=== PATIENT | female | born 1985 | race Caucasian/White ===

== ENCOUNTER 2016-10-12 12:04 | Outpatient (CLI) | payer OTHER ==
[~2016-10-12] VITALS: Ht 160 cm; Wt 69.5 kg
[~2016-10-12 12:04] MED LIST: ACHD5005 PO; HYDR-3583 PO; IBP600T1 PO; Ibuprofen PO; METR500T PO; PREN-93 PO; PREN1TAB14 PO; PREN1TAB25 PO
[2016-10-12 12:12] VITALS: BP 119/76
== END 2016-10-12 12:30 | disposition home or self-care (01) ==
LOC: PREOP 12:04
PROVIDERS: ATTEND Obstetrics & Gynecology
DX: Z01.818 Encounter for other preprocedural examination (principal); Z11.2 Encounter for screening for other bacterial diseases; O34.219 Maternal care for unspecified type scar from previous cesarean delivery
CPT/HCPCS: 87081

== ENCOUNTER 2016-10-16 06:08 | Inpatient (IN) | payer OTHER ==
[~2016-10-16] VITALS: Ht 160 cm; Wt 68.2 kg
[~2016-10-16 06:08] MED LIST changes: +CITRIC ACID/SOB CIT (BICITRA) 30 ML UDC ONE; +FAMOTIDINE 20MG/2ML IV (PEPCID) ONE; +METOCLOPRAMIDE INJ 10 MG/2 ML (REGLAN) ONE; +NS (IVPB) 50 ML ONE; +ceFAZolin 1,000 MG (ANCEF) VIAL ONE; +metroNIDAZOLE 500MG/100ML IVPB 100 ML ONE
--- OUTSIDE RECORDS SUMMARY | 2016-10-16 06:13 | XMS REPORT | Continuity of Care Document ---
Author Author [facility] Organization [facility] Address Unknown Phone Unavailable Allergies Active Description Code Type Severity Reaction Onset Reported/Identified Relationship to Patient Clinical Status Yes No Known Drug Allergies [id number] Drug Allergy Unknown N/ A 01/26/2011 Medications Problems Date Dx Coded Attending Type Code Diagnosis Diagnosed By 01/26/2011 Ot 616.10 VAGINITIS NOS 01/26/2011 Ot 623.8 NONINFLAM DIS VAGINA NEC 01/26/2011 Ot 646.63 INFECTION-ANTEPARTUM 01/26/2011 Ot 654.73 ABNORM VAGINA-ANTEPARTUM 07/01/2011 Ot 652.21 BREECH PRESENTAT-DELIVER 07/01/2011 Ot V06.1 [id number], COMBINED [ 07/01/2011 Ot V27.0 DELIVER-SINGLE LIVEBORN 01/20/2013 VEGA VAN MD Ot 632 MISSED 02/27/2014 IRA HOLDER, EMEILA Gr Ot 654.21 PREV DELIVRY W/ OR W/O MENT ANT 02/27/2014 IRA HOLDER, EMELIA Gr Ot V06.1 [id number], COMBINED [ 02/27/2014 EMELIA ROTH MD Ot V27.0 DELIVER-SINGLE LIVEBORN 02/25/2016 Ot 649.63 UTERINE SIZE DATE DISCREPANCY, ANTEPARTU 02/25/2016 EMELIA ROTH MD Ot 646.93 PREG COMPL NOS-ANTEPART 02/25/2016 EMELIA ROTH MD Ot 649.63 UTERINE SIZE DATE DISCREPANCY, ANTEPARTU 02/25/2016 EMELIA ROTH MD Ot V28.81 ENCOUNTER FOR ANATOMIC SURVEY 02/25/2016 VEGA VAN MD Ot 285.9 ANEMIA NOS 02/25/2016 VEGA VAN MD Ot 648.23 ANEMIA-ANTEPARTUM 02/25/2016 VEGA VAN MD Ot 654.23 PREV DELIVERY, ANTEPARTUM COND 02/25/2016 VEGA VAN MD Ot V72.63 PRE-PROCEDURAL LABORATORY EXAMINATION 02/25/2016 VEGA VAN MD Ot V74.8 SCREEN-BACTERIAL DIS NEC 02/25/2016 Ot 649.63 UTERINE SIZE DATE DISCREPANCY, ANTEPARTU 02/25/2016 EMELIA ROTH MD Ot 646.93 PREG COMPL NOS-ANTEPART 02/25/2016 EMELIA ROTH MD Ot 649.63 UTERINE SIZE DATE DISCREPANCY, ANTEPARTU 02/25/2016 EMELIA ROTH MD Ot V28.81 ENCOUNTER FOR ANATOMIC SURVEY 02/25/2016 VEGA VAN MD Ot 285.9 ANEMIA NOS 02/25/2016 VEGA VAN MD Ot 648.23 ANEMIA-ANTEPARTUM 02/25/2016 VEGA VAN MD Ot 654.23 PREV DELIVERY, ANTEPARTUM COND 02/25/2016 VEGA VAN MD Ot V72.63 PRE-PROCEDURAL LABORATORY EXAMINATION 02/25/2016 VEGA VAN MD Ot V74.8 SCREEN-BACTERIAL DIS NEC 03/16/2016 Ot 649.63 UTERINE SIZE DATE DISCREPANCY, ANTEPARTU 03/16/2016 EMELIA ROTH MD Ot 646.93 PREG COMPL NOS-ANTEPART 03/16/2016 EMELIA ROTH MD Ot 649.63 UTERINE SIZE DATE DISCREPANCY, ANTEPARTU 03/16/2016 EMELIA ROTH MD Ot V28.81 ENCOUNTER FOR ANATOMIC SURVEY 03/16/2016 VEGA VAN MD Ot 285.9 ANEMIA NOS 03/16/2016 VEGA VAN MD Ot 648.23 ANEMIA-ANTEPARTUM 03/16/2016 VEGA VAN MD Ot 654.23 PREV DELIVERY, ANTEPARTUM COND 03/16/2016 VEGA VAN MD Ot V72.63 PRE-PROCEDURAL LABORATORY EXAMINATION 03/16/2016 VEGA VAN MD Ot V74.8 SCREEN-BACTERIAL DIS NEC 03/18/2016 IRAEMELIA RIVAS MD, Ot Z34.91 ENCNTR FOR SUPRVSN OF NORMAL PREG, UNSP, 03/18/2016 EMELIA ROTH MD, Ot Z3A.08 8 WEEKS GESTATION OF 04/08/2016 EMELIA ROTH MD, Ot Z34.91 ENCNTR FOR SUPRVSN OF NORMAL PREG, UNSP, 04/08/2016 EMELIA ROTH MD, Ot Z3A.08 8 WEEKS GESTATION OF 06/10/2016 Ot 649.63 UTERINE SIZE DATE DISCREPANCY, ANTEPARTU 06/10/2016 EMELIA ROTH MD Ot 646.93 PREG COMPL NOS-ANTEPART 06/10/2016 EMELIA ROTH MD, Ot 649.63 UTERINE SIZE DATE DISCREPANCY, ANTEPARTU 06/10/2016 EMELIA ROTH MD, Ot V28.81 ENCOUNTER FOR ANATOMIC SURVEY 06/10/2016 VEGA VAN MD Ot 285.9 ANEMIA NOS 06/10/2016 VEGA VAN MD Ot 648.23 ANEMIA-ANTEPARTUM 06/10/2016 VEGA VAN MD Ot 654.23 PREV DELIVERY, ANTEPARTUM COND 06/10/2016 VEGA VAN MD Ot V72.63 PRE-PROCEDURAL LABORATORY EXAMINATION 06/10/2016 VEGA VAN MD Ot V74.8 SCREEN-BACTERIAL DIS NEC 06/10/2016 EMELIA ROTH MD, Ot Z34.91 ENCNTR FOR SUPRVSN OF NORMAL PREG, UNSP, 06/10/2016 EMELIA ROTH MD, Ot Z3A.08 8 WEEKS GESTATION OF 06/11/2016 EMELIA ROTH MD, Ot Z36 ENCOUNTER FOR SCREENING OF MOT 06/11/2016 EMELIA ROTH MD, Ot Z3A.20 20 WEEKS GESTATION OF 06/12/2016 EMELIA ROTH MD, Ot Z36 ENCOUNTER FOR SCREENING OF MOT 06/12/2016 EMELIA ROTH MD, Ot Z3A.20 20 WEEKS GESTATION OF 06/16/2016 EMELIA ROTH MD, Ot Z36 ENCOUNTER FOR SCREENING OF MOT 06/16/2016 EMELIA ROTH MD, Ot Z3A.20 20 WEEKS GESTATION OF 07/06/2016 EMELIA ROTH MD, Ot Z36 ENCOUNTER FOR SCREENING OF MOT 07/06/2016 EMELIA ROTH MD, Ot Z3A.20 20 WEEKS GESTATION OF 10/12/2016 MARILYNN NEWTON DO Ot O34.219 MATERNAL CARE FOR UNSP TYPE SCAR FROM ID 10/12/2016 LAMAR HANEY MARILYNN C Ot Z01.818 ENCOUNTER FOR OTHER PREPROCEDURAL EXAMIN 10/12/2016 MARILYNN NEWTON DO Ot Z11.2 ENCOUNTER FOR SCREENING FOR OTHER BACTER 10/13/2016 MARILYNN NEWTON DO Ot O34.219 MATERNAL CARE FOR UNSP TYPE SCAR FROM ID 10/13/2016 MARILYNN NEWTON DO Ot Z01.818 ENCOUNTER FOR OTHER PREPROCEDURAL EXAMIN 10/13/2016 MARILYNN NEWTON DO Ot Z11.2 ENCOUNTER FOR SCREENING FOR OTHER BACTER 10/16/2016 EMELIA ROTH MD Ot 646.93 PREG COMPL NOS-ANTEPART 10/16/2016 EMELIA ROTH MD, Ot 649.63 UTERINE SIZE DATE DISCREPANCY, ANTEPARTU 10/16/2016 EMELIA ROTH MD, Ot V28.81 ENCOUNTER FOR ANATOMIC SURVEY 10/16/2016 VEGA VAN MD Ot 285.9 ANEMIA NOS 10/16/2016 VEGA VAN MD Ot 648.23 ANEMIA-ANTEPARTUM 10/16/2016 VEGA VAN MD Ot 654.23 PREV DELIVERY, ANTEPARTUM COND 10/16/2016 VEGA VAN MD Ot V72.63 PRE-PROCEDURAL LABORATORY EXAMINATION 10/16/2016 VEGA VAN MD, Ot V74.8 SCREEN-BACTERIAL DIS NEC 10/16/2016 EMELIA ROTH MD, Ot Z34.91 ENCNTR FOR SUPRVSN OF NORMAL PREG, UNSP, 10/16/2016 EMELIA ROTH MD, Ot Z3A.08 8 WEEKS GESTATION OF 10/16/2016 EMELIA ROTH MD, Ot Z36 ENCOUNTER FOR SCREENING OF MOT 10/16/2016 EMELIA ROTH MD, Ot Z3A.20 20 WEEKS GESTATION OF Procedures Code Description Performed By Performed On 74.1 LOW CERVICAL 06/29/2011 74.1 LOW CERVICAL 02/25/2014 99.77 APPL/ADMIN OF AN ADHESION BARRIER SUBSTA 02/25/2014 Results Test Result Range Methicillin resistant Staphylococcus aureus (MRSA) screening culture - 12:22 Methicillin resistant Staphylococcus aureus (MRSA) screening culture NEG NRG Encounters ACCT No. Visit Date/Time Discharge Status Pt. Type Provider Facility Loc./Unit Complaint [id number] 10/12/2016 12:04:00 2016 12:30:00 DIS Outpatient MARILYNN NEWTON DO [facility] PREOP PREVIOUS SECTION [id number] 02/25/2014 01:11:00 2013 14:00:00 DIS Inpatient EMELIA ROTH MD [facility] LDRP REPEAT C/S IN LABOR [id number] 02/21/2014 10:42:00 2013 23:59:59 CLS Outpatient VEGA VAN MD [facility] PREOP PREVIOUS SECTION [id number] 10/17/2013 15:38:00 2013 23:59:59 CLS Outpatient EMELIA ROTH MD [facility] RAD SURVEY [id number] 07/21/2013 15:23:00 2012 23:59:59 CLS Outpatient EMELIA ROTH MD [facility] RAD SIZE/DATE DISCREPENCY [id number] 01/20/2013 12:42:00 2012 18:35:00 DIS Outpatient VEGA VAN MD [facility] SDC BLIGHTED OVUM [id number] 01/17/2013 10:47:00 2012 23:59:59 CLS Outpatient EMELIA ROTH MD [facility] RAD FUNDAL HEIGHT DISCREPENCY [id number] 10/16/2016 06:08:00 ACT Inpatient MARILYNN NEWTON DO [facility] LDRP PREVIOUS SECTION [id number] 06/10/2016 12:56:00 ACT Outpatient EMELIA ROTH MD [facility] RAD SURVEY [id number] 03/16/2016 15:52:00 ACT Outpatient IRA HOLDER, EMELIA Gr [facility] RAD DATING [id number] 02/25/2016 08:45:00 Document Registration [id number] 06/28/2011 19:13:00 Document Registration [id number] 03/04/2011 15:22:00 Document Registration [id number] 01/26/2011 00:48:00 Document Registration
[2016-10-16] MEDS ORDERED: CATHETER FLUSH 10 ML SYR IV PRN (06:30)
[2016-10-16] MEDS ORDERED: FAMOTIDINE 20MG/2ML IV (PEPCID) IV ONE (06:30)
[2016-10-16] MEDS ORDERED: METOCLOPRAMIDE INJ 10 MG/2 ML (REGLAN) IV ONE (06:30)
[2016-10-16] MEDS ORDERED: CITRIC ACID/SOB CIT (BICITRA) 30 ML UDC PO ONE (06:30)
[2016-10-16] MEDS ORDERED: metroNIDAZOLE 500MG/100ML IVPB 100 ML IV ONE (06:30)
[2016-10-16] MEDS: LACTATED RINGERS 1,000 ML IV PRN ×2 (06:30→08:10)
[2016-10-16 06:51] LABS: BILIRUBIN,URINE NEGATIVE (NEGATIVE); KETONES,URINE NEGATIVE (NEGATIVE); LEUKOCYTE ESTERASE ,URINE 1+ (NEGATIVE); NITRITE,URINE NEGATIVE (NEGATIVE); PH,URINE 6.5 (5-9); PROTEIN,URINE 2+ (NEGATIVE); UROBILINOGEN,URINE NORMAL (NORMAL)
[2016-10-16] MEDS ORDERED: morphine PF (DURAMORPH) 10 MG/10 ML AMP ONE (06:54)
[2016-10-16] MEDS ORDERED: OXYTOCIN/NORMAL SALINE 1,000 ML IV ONE (06:54)
[2016-10-16] MEDS ORDERED: fentaNYL INJECTION 100 MCG/2 ML AMP ONE (06:54)
[2016-10-16] MEDS ORDERED: KETOROLAC 30 MG/ML VIAL ONE (06:54)
[2016-10-16] MEDS ORDERED: ONDANSETRON 4 MG/2 ML (SDV) Z0FRAN ONE (06:54)
[2016-10-16 06:56] LABS: BASOPHILS % (AUTO) 0 % (0-10); EOSINOPHILS # (AUTO) 0.1 10^3/uL (0.0-0.3); EOSINOPHILS % (AUTO) 1 % (0-10); LYMPHOCYTES # (AUTO) 1.9 X 10^3 (1.0-4.0); LYMPHOCYTES % (AUTO) 23 % (12-44); MEAN CORPUSCULAR HEMOGLOBIN 30 PG (25-34); MEAN CORPUSCULAR HGB CONC 34 G/DL (32-36); MEAN CORPUSCULAR VOLUME 87 FL (80-99); MEAN PLATELET VOLUME 10.7 FL (7.4-10.4); MONOCYTES # (AUTO) 0.5 X 10^3 (0.0-1.0); MONOCYTES % (AUTO) 6 % (0-12); NEUTROPHILS # (AUTO) 5.7 X 10^3 (1.8-7.8); NEUTROPHILS % (AUTO) 69 % (42-75); PLATELET COUNT 208 10^3/uL (130-400); RED BLOOD COUNT 4.36 10^6/uL (4.35-5.85); RED CELL DISTRIBUTION WIDTH 13.5 % (10.0-14.5); WHITE BLOOD COUNT 8.3 10^3/uL (4.3-11.0)
--- NOTE | 2016-10-16 07:11 | Progress Note-Pre Operative ---
Pre-Operative Progress Note H&P Reviewed The H&P was reviewed, patient examined and no changes noted. Date H&P Reviewed: Oct 16, 2016 Time H&P Reviewed: 07:00 Pre-Operative Diagnosis: Previous section MARILYNN NEWTON DO Oct 16, 2016 07:11
[2016-10-16] MEDS: ceFAZolin INJECTION 1,000 MG in NS (IVPB) 50 ML IV SCH ×2 (08:27→22:30)
[2016-10-16] MEDS ORDERED: fentaNYL INJECTION 100 MCG/2 ML AMP INJ ONE (09:15)
[2016-10-16] MEDS ORDERED: ONDANSETRON 4 MG/2 ML (SDV) Z0FRAN IV PRN (09:15)
[2016-10-16] MEDS ORDERED: NALOXONE 0.4 MG/ML 1 ML (NARCAN) VIAL IV PRN (09:15)
[2016-10-16] MEDS ORDERED: morphine PF (DURAMORPH) 10 MG/10 ML AMP INJ ONE (09:15)
[2016-10-16] MEDS ORDERED: OXYTOCIN/NORMAL SALINE 500 ML IV SCH (09:18)
[2016-10-16] MEDS ORDERED: D5 LR IV SOLUTION 1,000 ML IV SCH (09:18)
--- NOTE | 2016-10-16 09:23 | Cesarean Section Operative ---
Procedure Procedure Note Pre-operative Diagnosis: Jessica Tucker is a 31 /Para 4/2 , Gestational Age 39 weeks with history of repeat section Post-operative Diagnosis: same Procedure: [] low transverse section Physician: MARILYNN NEWTON Trim Stencil Maker: Nicole Ansari MS III Estimated blood loss: 300 mL Disposition: stable Findings: Viable male , Apgars 7/9, weight 6#9oz, intact placenta, 3vc, normal appearing uterus, tubes, and ovaries. Indications:Jessica Tucker is a 31 /Para 4/2 ,Gestational Age 39 weeks with history of repeat section Procedure Details: The patient was seen in pre-op and the procedure was discussed with the patient in full, including the risks, benefits, and alternatives. All questions were answered. The patient was taken to the operating room and a time out was performed, verifying patient and procedure. After spinal anesthesia was placed by our anesthesia colleagues, the patient was placed in the dorsal supine with leftward tilt for uterine displacement.~ Her abdomen was then prepped and draped in the typical sterile fashion. A Pfannenstiel skin incision was made using a scalpel and carried down through the underlying fascia. The fascia was incised in the midline and tented up using Luis Miguel clamps. On both the inferior and superior fascia side the rectus muscle was dissected off bluntly and sharply using Leiva scissors. The peritoneum was identified and entered bluntly in the midline. This was then stretched laterally using manual strength. After entering the abdominal cavity and confirming lack of intraperitoneal adhesions, a large Ryan retractor was placed and the lower uterine segment was visualized. The lower uterine segment was thin but not a window. A scalpel was utilized to make a low transverse uterine incision. Amniotomy was performed with an Allis clamp with return of clear fluid. The 's head was grasped and brought to the level of the incision. Fundal pressure was applied and was delivered without difficulty with assistance of a silastic suction. Mouth and nares were suctioned with bulb suction. After the umbilical cord was clamped and cut, the infant was handed off to the pediatric staff. A sample of cord blood was then obtained. The placenta was delivered intact via uterine massage. The uterus was cleared of all clots and debris. The uterine incision was closed using 0 Vicryl in a running locked fashion. A second imbricated layer was placed using 0 Vicryl in a running fashion as well. The bilateral tubes and ovaries appeared normal. The abdominal gutters were cleared of all clots and debris. A final check of the uterine incision showed it to be hemostatic. The peritoneum was closed using 3- 0 Vicryl in a running fashion. The fascia was closed with 0 Vicryl in a running fashion. The subcutaneous space was hemostatic, and irrigated. The subcutaneous space was closed with 3-0 Plain in running fashion. The skin was then closed using 4-0 Monocryl in a running subcuticular fashion. The skin edges were reapproximated together and were hemostatic. A pressure dressing was applied. All sponge, lap and needle counts were correct at the end of the procedure per nursing. Vitals - Labs Labs Laboratory Tests 10/16/16 06:15: Urine Bacteria FEWH, Urine Bilirubin NEGATIVE, Urine Casts NONE, Urine Clarity CLEAR, Urine Color YELLOW, Urine Crystals NONE, Urine Culture Indicated NO, Urine Glucose (UA) NEGATIVE, Urine Ketones NEGATIVE, Urine Leukocyte Esterase 1+ H, Urine Mucus NEGATIVE, Urine Nitrite NEGATIVE, Urine Protein 2+H, Urine RBC NONE, Urine RBC (Auto) NEGATIVE, Urine Specific [place] 1.020, Urine Squamous Epithelial Cells 5-10, Urine Urobilinogen NORMAL, Urine WBC NONE, Urine pH 6.5 10/16/16 06:30: Basophils # (Auto) 0.0, Basophils (%) (Auto) 0, Eosinophils # (Auto) 0.1, Eosinophils (%) (Auto) 1, Hematocrit 38, Hemoglobin 12.9, Lymphocytes # (Auto) 1.9, Lymphocytes (%) (Auto) 23, Mean Corpuscular Hemoglobin 30, Mean Corpuscular Hemoglobin Concent 34, Mean Corpuscular Volume 87, Mean Platelet Volume 10.7H, Monocytes # (Auto) 0.5, Monocytes (%) (Auto) 6, Neutrophils # ( Auto) 5.7, Neutrophils (%) (Auto) 69, Platelet Count 208, Red Blood Count 4.36, Red Cell Distribution Width 13.5, White Blood Count 8.3 MARILYNN NEWTON DO Oct 16, 2016 09:23 MARILYNN NEWTON DO Oct 16, 2016 09:23
[2016-10-16] MEDS: KETOROLAC 30 MG/ML VIAL IVP SCH ×3 (09:30→21:11)
[2016-10-16] MEDS ORDERED: HYDROmorphone (DILAUDID) 2 MG/ML VIAL IVP PRN (09:30)
[2016-10-16] MEDS ORDERED: MEASLES,MUMPS,RUBELLA 1 EA INJ SC SCH (09:30)
[2016-10-16] MEDS ORDERED: TETANUS,DIPTH,PERTUSS P/F (BOOSTRIX) 0.5 ML VIAL IM SCH (09:30)
[2016-10-16 10:49] VITALS: BP 103/65
[2016-10-16] MEDS ORDERED: CATHETER FLUSH 10 ML SYR IV SCH (14:00)
[2016-10-16 15:05] VITALS: BP 108/74
[2016-10-16] MEDS: DOCUSATE SODIUM 100 MG (COLACE) CAP PO SCH (21:11)
[2016-10-16 21:45] VITALS: BP 101/67
[2016-10-17 02:10] VITALS: BP 112/75
[2016-10-17] MEDS: KETOROLAC 30 MG/ML VIAL IVP SCH (02:50)
[2016-10-17 05:34] LABS: BASOPHILS % (AUTO) 0 % (0-10); EOSINOPHILS # (AUTO) 0.1 10^3/uL (0.0-0.3); EOSINOPHILS % (AUTO) 1 % (0-10); LYMPHOCYTES # (AUTO) 1.8 X 10^3 (1.0-4.0); LYMPHOCYTES % (AUTO) 14 % (12-44); MEAN CORPUSCULAR HEMOGLOBIN 30 PG (25-34); MEAN CORPUSCULAR HGB CONC 34 G/DL (32-36); MEAN CORPUSCULAR VOLUME 88 FL (80-99); MEAN PLATELET VOLUME 10.3 FL (7.4-10.4); MONOCYTES # (AUTO) 0.9 X 10^3 (0.0-1.0); MONOCYTES % (AUTO) 7 % (0-12); NEUTROPHILS # (AUTO) 10.3 X 10^3 (1.8-7.8); NEUTROPHILS % (AUTO) 79 % (42-75); PLATELET COUNT 179 10^3/uL (130-400); RED BLOOD COUNT 3.89 10^6/uL (4.35-5.85); RED CELL DISTRIBUTION WIDTH 13.6 % (10.0-14.5); WHITE BLOOD COUNT 13.1 10^3/uL (4.3-11.0)
[2016-10-17 06:30] VITALS: BP 106/66
--- NOTE | 2016-10-17 08:36 | Anesthesia-Regional Post-Op ---
Regional Patient Condition Mental Status: Alert, Oriented x3 Circulation: Same as Pre-Op Headache: Absent Sensation: Full Recovery Motor Block: Absent Post Op Complications Complications None Follow Up Care/Instructions Patient Instructions None needed. Anesthesia/Patient Condition Patient is doing well, no complaints, stable vital signs, no apparent adverse anesthesia problems. No complications reported per nursing. DINA KANG CRNA Oct 17, 2016 08:36
[2016-10-17] MEDS: IBUPROFEN 600 MG (MOTRIN) TAB PO SCH ×3 (09:26→21:09)
[2016-10-17] MEDS: FERROUS SULF 325 MG (IRON) TAB PO SCH (09:26)
[2016-10-17] MEDS: DOCUSATE SODIUM 100 MG (COLACE) CAP PO SCH ×2 (09:26→21:09)
[2016-10-17] MEDS: HYDROcodone/APAP 5 MG/325 MG (LORTAB) TAB PO PRN ×2 (09:33→21:10)
[2016-10-17 09:35] VITALS: BP 106/67
--- NOTE | 2016-10-17 11:26 | Postpartum Progress Note ---
Post Op Post-operative Day #1 Subjective: Patient is without complaints. Ambulating, voiding after alatorre removed. Tolerating a regular diet without nausea or vomiting. Normal lochia. Pain is well controlled with oral pain medications. Passing flatus. breast feeding. Objective: Vital Signs 10/17/16 09:35 Temp 98.4 Pulse 66 Resp 18 B/P 106/67 Pulse Ox 99 O2 Delivery Room Air Laboratory Tests Test 10/17/16 05:26 Range/Units Basophils # (Auto) 0.0 0.0-0.1 10^3/uL Basophils (%) (Auto) 0 0-10 % Eosinophils # (Auto) 0.1 0.0-0.3 10^3/uL Eosinophils (%) (Auto) 1 0-10 % Hematocrit 34 L 35-52 % Hemoglobin 11.5 11.5-16.0 G/DL Lymphocytes # (Auto) 1.8 1.0-4.0 X 10^3 Lymphocytes (%) (Auto) 14 12-44 % Mean Corpuscular Hemoglobin 30 25-34 PG Mean Corpuscular Hemoglobin Concent 34 32-36 G/DL Mean Corpuscular Volume 88 80-99 FL Mean Platelet Volume 10.3 7.4-10.4 FL Monocytes # (Auto) 0.9 0.0-1.0 X 10^3 Monocytes (%) (Auto) 7 0-12 % Neutrophils # (Auto) 10.3 H 1.8-7.8 X 10^3 Neutrophils (%) (Auto) 79 H 42-75 % Platelet Count 179 130-400 10^3/uL Red Blood Count 3.89 L 4.35-5.85 10^6/uL Red Cell Distribution Width 13.6 10.0-14.5 % White Blood Count 13.1 H 4.3-11.0 10^3/uL Physical Exam: General - Alert and oriented, no apparent distress Abdomen - Soft, appropriately tender to palpation, non-distended, fundus firm at umbilicus Incision - clean, dry and intact; no erythema or induration, no drainage Extremities - no edema, negative Kodi's bilaterally Assessment: 1. post-operative day # 1, status post RLTCS. Recovering well, hemodynamically stable Plan: Routine post-operative care. Encourage breast feeding. Encourage ambulation. VTE prophylaxis: SCDs. Plan for discharge POD 2 Vitals - Labs Vital Signs - I&O Vital Signs Date Time Temp Pulse Resp B/P Pulse Ox O2 Delivery O2 Flow Rate FiO2 10/17/16 09:35 98.4 66 18 106/67 99 Room Air 10/17/16 06:30 98.2 71 18 106/66 99 Room Air 10/17/16 02:10 98.0 67 18 112/75 98 Room Air 10/16/16 21:45 97.9 69 18 101/67 98 Room Air 10/16/16 15:05 97.4 55 16 108/74 100 Room Air I & O 10/17/16 07:00 Intake Total 3850 ml Output Total 2950 ml Balance 900 ml Labs Laboratory Tests 10/17/16 05:26: Basophils # (Auto) 0.0, Basophils (%) (Auto) 0, Eosinophils # (Auto) 0.1, Eosinophils (%) (Auto) 1, Hematocrit 34L, Hemoglobin 11.5, Lymphocytes # (Auto) 1.8, Lymphocytes (%) (Auto) 14, Mean Corpuscular Hemoglobin 30, Mean Corpuscular Hemoglobin Concent 34, Mean Corpuscular Volume 88, Mean Platelet Volume 10.3, Monocytes # (Auto) 0.9, Monocytes (%) (Auto) 7, Neutrophils # (Auto ) 10.3H, Neutrophils (%) (Auto) 79H, Platelet Count 179, Red Blood Count 3.89L, Red Cell Distribution Width 13.6, White Blood Count 13.1H MARILYNN NEWTON DO Oct 17, 2016 11:26 MARILYNN NEWTON DO Oct 17, 2016 11:26
[2016-10-17 12:32] VITALS: BP 101/67
[2016-10-17 15:37] VITALS: BP 99/64
[2016-10-17 21:08] VITALS: BP 103/64
[2016-10-18] MEDS: IBUPROFEN 600 MG (MOTRIN) TAB PO SCH ×2 (04:58→10:25)
[2016-10-18 05:00] VITALS: BP 103/65
[2016-10-18 09:10] VITALS: BP 106/67
[2016-10-18] MEDS: DOCUSATE SODIUM 100 MG (COLACE) CAP PO SCH (09:11)
[2016-10-18] MEDS: FERROUS SULF 325 MG (IRON) TAB PO SCH (09:12)
--- NOTE | 2016-10-18 09:15 | Progress Note-Standard ---
Standard Progress Note Progress Notes/Assess & Plan Progress/Assessment & Plan Patient doing well. Some serous drainage when bandage removed but not today. Feeling well. Plan discharge today. POD #2 s/p RLTCS. Vital Sign - Last 12Hours 10/18/16 05:00 Temp 98.0 Pulse 54 Resp 18 B/P 103/65 Pulse Ox 99 O2 Delivery Room Air follow up with me in 1 weeks and Agnes for 6 week exam. MARILYNN NEWTON DO Oct 18, 2016 09:15
[2016-10-18] MEDS ORDERED: HYDR-3812 PO (09:16)
[2016-10-18] MEDS ORDERED: IBUP-1773 PO (09:16)
[2016-10-18] MEDS ORDERED: DOCU100C37 PO (09:16)
--- NOTE | 2016-10-18 09:20 | Discharge Inst-Women's Service ---
Discharge Inst-Women's Serv Depart Medication/Instructions New, Converted or Re-Newed RX: RX on Chart Instructions no lifting over 25 [address]. No driving for 1 week. Final Diagnosis Repeat section Consults/Follow Up Additional Follow Up: Yes ([address] Simms for incision check. 6 weeks with Agnes.) Activity Activity: Activity as Tolerated Driving Instructions: No Driving for 1 Week NO SMOKING: NO SMOKING Nothing Inside Vagina: No Douching, No [place], No Tampons Diet Discharge Diet: No Restrictions Symptoms to Report to : Bleeding Excessive, Pain Increased, Fever Over 101 Degrees F, Vaginal Bleeding Increase, Cramps in Feet or Legs, Vaginal Discharge Foul For Any Problems or Questions: Contact Your Physician Skin/Wound Care Infection Signs and Symptoms: Increased Redness, Foul Odor of Wound, Increased Drainage, Skin Itchy or Has a Rash, Increased Swelling, Temperature Above 101 F Operative Area Clean and Dry: Keep Incision Clean/Dry Stitches/Maryann/Dermabond: Dermabond Bathing Instructions: MARILYNN Veloz DO Oct 18, 2016 09:20
[2016-10-18] MEDS: HYDROcodone/APAP 5 MG/325 MG (LORTAB) TAB PO PRN (10:25)
== END 2016-10-18 16:05 | disposition home or self-care (01) | DRG 766 ==
LOC: LDRP 06:08
PROVIDERS: ADMIT Obstetrics & Gynecology; ATTEND Obstetrics & Gynecology
PROC: 10D00Z1 Extraction of Products of Conception, Low, Open Approach (ICD-10-PCS; principal; 2016-10-16 08:10)
DX: O34.211 Maternal care for low transverse scar from previous cesarean delivery (principal); Z37.0 Single live birth; Z3A.39 39 weeks gestation of pregnancy; Z23 Encounter for immunization
CPT/HCPCS: 36415; 81000; 85025; 86850; 86900; 86901; 90715; 94664